=== PATIENT | female | born 1965 | race Caucasian/White ===

== ENCOUNTER 2017-01-30 18:47 | Emergency (ER) | payer SELFPAY ==
[~2017-01-30] VITALS: Ht 172.7 cm; Wt 91.0 kg
[~2017-01-30 18:47] MED LIST: HYDR10SO PO; NORV10TA PO
[2017-01-30 18:55] VITALS: BP 148/100; PULSE 102; RESP 16; TEMP 98.4; O2SAT 96
[2017-01-30] MEDS ORDERED: AMLO10 PO (19:23)
--- NOTE | 2017-01-30 19:44 | PD ---
HPI Chief Complaint: Injury Time Seen by Provider: 19:25 Travel History International Travel<30 days: No Contact w/Intl Traveler<30days: No Traveled to known affect area: No History of Present Illness HPI 51-year-old female presents to the emergency room for evaluation of right fifth toe pain, swelling, and bruising after catching her toe on a cooler last night. She looked down at her toe and solid sticking out to the right. Her grabbed it and pulled it back in place. Patient jane taped her toe to the 2 adjacent toes. Pain is described as throbbing, worse with ambulation and range of motion. She denies paresthesias. She applied ice last night and took Tylenol without any relief in symptoms. She is still able to ambulate. PFSH Past Medical History Autoimmune Disease: No Anxiety: Yes Depression: No Cancer: No Cardiovascular Problems: Yes Diabetes: No Diminished Hearing: No Endocrine: No Genitourinary: No Hypertension: Yes Immune Disorder: No Musculoskeletal: No Neurologic: No Psychiatric: Yes Reproductive: No Respiratory: Yes (allergies) Immunizations Current: Yes Thyroid Disease: No Tetanus Vaccination: < 5 Years Influenza Vaccination: No ?: Not Past Surgical History Gynecologic Surgery: Yes (PARTIAL HYSTERECTOMY 2004) Hysterectomy: Yes (PARTIAL) Other Surgery: Yes Social History Alcohol Use: Yes (OCCASIONAL) Tobacco Use: Yes (ONE PACK PER DAY) Substance Use: No Allergies-Medications (Allergen,Severity, Reaction): Coded Allergies: Penicillin (Verified Allergy, Severe, RASH, 01/30/17) Sulfa (Verified Allergy, Severe, RASH, 01/30/17) Reported Meds & Prescriptions Reported Meds & Active Scripts Active Reported Norvasc (Amlodipine Besylate) 10 Mg Tab 10 Mg PO DAILY Review of Systems Except as stated in HPI: all other systems reviewed are Neg Physical Exam Narrative GENERAL: Well-nourished, well-developed female in no acute distress. Afebrile. Ambulatory without limp. SKIN: Focused skin assessment warm/dry. Moderate ecchymosis of the right fifth toe and distal foot. HEAD: Normocephalic. EYES: No scleral icterus. No injection or drainage. NECK: Supple, trachea midline. No JVD or lymphadenopathy. CARDIOVASCULAR: Regular rate and rhythm without murmurs, gallops, or rubs. RESPIRATORY: Breath sounds equal bilaterally. No accessory muscle use. EXTREMITY: Right fifth toe extremely tender to palpation. Limited range of motion. 2 second capillary refill distally. Data Data Last Documented VS Vital Signs Date Time Temp Pulse Resp B/P Pulse Ox O2 Delivery O2 Flow Rate FiO2 01/30/17 18:55 98.4 102 16 148/100 96 Orders Toe (Min 2vws) (01/30/17 ) Splint Or Brace Apply/Monitor (01/30/17 20:13) MDM Medical Decision Making Medical Screen Exam Complete: Yes Emergency Medical Condition: Yes Medical Record Reviewed: Yes Differential Diagnosis Tooth fracture versus dislocation versus sprain versus strain versus contusion Narrative Course 51-year-old female presents to the emergency room for evaluation of the right fifth toe pain, swelling, and bruising after running into a cooler yesterday. Physical exam reveals moderate ecchymosis of the right fifth toe and distal foot and tenderness to palpation. Less than 2 second capillary refill distally. X-ray reveals a nondisplaced fracture of the proximal phalanx of the fifth toe. Toe was jane taped and patient placed in a postop shoe. Told to follow up with her primary care physician or return to the emergency room for worsening symptoms. She understands and agrees to plan. Diagnosis Primary Impression: Toe fracture, right Qualified Code: S92.514A - Closed nondisplaced fracture of proximal phalanx of lesser toe of right foot, initial encounter Referrals: Primary Care Physician Patient Instructions: General Instructions, Toe Fracture (ED) Departure Forms: Tests/Procedures, Work Release Special Instructions: Please allow Margrit to wear loosefitting shoes. Additional Instructions: Rest and drink plenty of fluids. Elevate telling keep wrapped for up to 6 weeks. Take ibuprofen with food as directed, as needed for pain. Apply ice to the affected area for 20 minutes at a time, as needed for pain and swelling. Follow-up with a primary care physician. Return to the emergency room for worsening symptoms. Med/Other Pt SpecificInfo: Prescription(s) given Disposition: 01 DISCHARGE HOME Condition: Stable Basilia Adkins January 30, 2017 19:44
--- NOTE | 2017-01-30 20:42 | RADHPO ---
EXAM DATE/TIME: 01/30/2017 19:40 [facility] COMPARISON: No previous studies available for comparison. INDICATIONS : Right 5th digit pain after patient kicked cooler yesterday MEDICAL HISTORY : None. SURGICAL HISTORY : None. ENCOUNTER: Initial ACUITY: 1 day PAIN SCORE: 10/10 LOCATION: Right 5th digit FINDINGS: There is a transverse fracture of the proximal phalanx of the fifth digit. No intra-articular extensi on is present. Bony mineralization is normal. CONCLUSION: 1. Fracture proximal phalanx fifth toe Anthony Bose MD on January 30, 2017 at 20:37 Board Certified Radiologist. This report was verified electronically.
== END 2017-01-30 20:55 | disposition home or self-care (01) ==
LOC: PHEFT 18:47
DX: S92.911A Unspecified fracture of right toe(s), initial encounter for closed fracture (principal); W22.8XXA Striking against or struck by other objects, initial encounter; F41.9 Anxiety disorder, unspecified; I10 Essential (primary) hypertension
CPT/HCPCS: 73660; 99283; L3260

== ENCOUNTER 2018-02-11 18:50 | Emergency (ER) | payer SELFPAY ==
[~2018-02-11 18:50] MED LIST changes: +AMLO10 PO; -HYDR10SO PO; -NORV10TA PO
[2018-02-11 19:39] VITALS: BP 194/102; PULSE 93; RESP 15; TEMP 98.8; O2SAT 97
[2018-02-11] MEDS ORDERED: MUPI2%T TOPICAL (20:07)
[2018-02-11] MEDS ORDERED: BACT800T5 PO (20:07)
--- NOTE | 2018-02-11 20:11 | PD ---
HPI Chief Complaint: Skin Problem Time Seen by Provider: 20:05 Travel History International Travel<30 days: No Contact w/Intl Traveler<30days: No Traveled to known affect area: No History of Present Illness HPI 52-year-old female presents emergency department with painful erythematous draining area to the left lower abdominal region. Patient states it started as an insect bite. She states she has had these previously. She states it drained last evening and feels somewhat better today but is requesting an antibiotic to "get the poison out". Patient's pain is currently 6 out of 10. She denies fever, chills, or other symptoms. Patient was stated to be allergic to sulfa as a child, but she states she recently took Bactrim without reaction. She is allergic to penicillin. PFSH Past Medical History Autoimmune Disease: No Anxiety: Yes Depression: No Cancer: No Cardiovascular Problems: Yes Diabetes: No Diminished Hearing: No Endocrine: No Genitourinary: No Hypertension: Yes Immune Disorder: No Musculoskeletal: No Neurologic: No Psychiatric: Yes Reproductive: No Respiratory: Yes (allergies) Immunizations Current: Yes Thyroid Disease: No ?: Not Past Surgical History Gynecologic Surgery: Yes (PARTIAL HYSTERECTOMY 2004) Hysterectomy: Yes Other Surgery: Yes Social History Alcohol Use: Yes (OCCASIONAL) Tobacco Use: Yes (ONE PACK PER DAY) Substance Use: No Allergies-Medications (Allergen,Severity, Reaction): Coded Allergies: penicillin G (Unverified Adverse Reaction, Intermediate, RASH, 02/11/18) Reported Meds & Prescriptions Reported Meds & Active Scripts Active Bactroban Topical (Mupirocin) 22 Gm Cream 1 Applic TOPICAL TID Bactrim DS (Sulfamethoxazole-Trimethoprim) 800-160 Mg Tab 1 Tab PO BID Reported Norvasc (Amlodipine Besylate) 10 Mg Tab 10 Mg PO DAILY Review of Systems Except as stated in HPI: all other systems reviewed are Neg General / Constitutional: No: Fever Eyes: No: Visual changes HENT: No: Headaches Cardiovascular: No: Chest Pain or Discomfort Respiratory: No: Shortness of Breath Gastrointestinal: No: Abdominal Pain Genitourinary: No: Dysuria Musculoskeletal: No: Pain Skin: Positive Lesions (See history of present illness), No Rash Neurologic: No: Weakness Psychiatric: No: Depression Endocrine: No: Polydipsia Hematologic/Lymphatic: No: Easy Bruising Physical Exam Narrative GENERAL: Patient is in no acute distress. SKIN: Warm and dry. Normal color. Normal turgor. Patient does not fact have a draining lesion to the anterior abdomen measuring approximately 1 inch in diameter with erythema, induration, and central draining area without significant abscess. HEAD: Atraumatic. Normocephalic. EYES: Pupils equal and round. No scleral icterus. No injection or drainage. ENT: No nasal bleeding or discharge. Mucous membranes pink and moist. Pharynx is clear. Airways patent NECK: Trachea midline. Supple. CARDIOVASCULAR: Regular rate and rhythm. RESPIRATORY: No accessory muscle use. Clear to auscultation. Breath sounds equal bilaterally. MUSCULOSKELETAL: Extremities without clubbing, cyanosis, or edema. No obvious deformities. NEUROLOGICAL: Awake and alert. No obvious cranial nerve deficits. Motor grossly within normal limits. Five out of 5 muscle strength in the arms and legs. Normal speech. PSYCHIATRIC: Appropriate mood and affect; insight and judgment normal. Data Data Last Documented VS Vital Signs Date Time Temp Pulse Resp B/P (MAP) Pulse Ox O2 Delivery O2 Flow Rate FiO2 02/11/18 19:39 98.8 93 15 194/102 (132) 97 MDM Medical Decision Making Medical Screen Exam Complete: Yes Emergency Medical Condition: Yes Medical Record Reviewed: Yes Differential Diagnosis Insect bite with cellulitis. MRSA. Draining abscess per Narrative Course I&D is not felt to be warranted at this time Patient is treated with Bactrim DS twice daily 7 days. Patient also given Bactroban ointment to be applied twice daily as directed as needed. Patient to follow-up if symptoms worsen as needed. Diagnosis Primary Impression: Insect bite, infected Qualified Codes: W57.XXXA - Bitten or stung by nonvenomous insect and other nonvenomous arthropods, initial encounter Patient Instructions: General Instructions, Insect Bite or Sting (ED), MRSA ( Methicillin-Resistant Staphylococcus Aureus) (ED) Additional Instructions: I&D is not felt to be warranted at this time Patient is treated with Bactrim DS twice daily 7 days. Patient also given Bactroban ointment to be applied twice daily as directed as needed. Patient to follow-up if symptoms worsen as needed. Med/Other Pt SpecificInfo: Prescription(s) given Scripts Mupirocin Topical (Bactroban Topical) 22 Gm Cream 1 APPLIC TOPICAL TID for Mgmt Bacterial Infection, #1 TUBE 0 Refills Prov: Oliver Bernal MD 02/11/18 Sulfamethoxazole-Trimethoprim (Bactrim DS) 800-160 Mg Tab 1 TAB PO BID for Infection, #14 TAB 0 Refills Prov: Oliver Bernal MD 02/11/18 Disposition: 01 DISCHARGE HOME Condition: Stable Ryan Clark February 11, 2018 20:11
== END 2018-02-11 20:20 | disposition home or self-care (01) ==
LOC: NEPK 18:50
DX: S30.861A Insect bite (nonvenomous) of abdominal wall, initial encounter (principal); L08.9 Local infection of the skin and subcutaneous tissue, unspecified; W57.XXXA Bitten or stung by nonvenomous insect and other nonvenomous arthropods, initial encounter
CPT/HCPCS: 99283